=== PATIENT | male | born 1990 | race African-American/Black ===

== ENCOUNTER 2022-05-27 16:17 | Emergency (ER) | payer OTHER ==
[~2022-05-27] VITALS: Ht 182.9 cm; Wt 120.0 kg
[2022-05-27] MEDS ORDERED: PRED20TA2 PO (19:14)
[2022-05-27 19:30] VITALS: BP 115/64
== END 2022-05-27 19:34 | disposition home or self-care (01) ==
LOC: ER 16:17
DX: R05.9 Cough, unspecified (principal); R04.2 Hemoptysis
CPT/HCPCS: 71046